=== PATIENT | female | born 2000 | race Caucasian/White ===

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

== ENCOUNTER 2020-05-08 18:28 | Emergency (ER) | payer MEDICAID, SELFPAY ==
[2020-05-08 18:30] VITALS: BP 139/81; PULSE 103; RESP 17; TEMP 36.2; O2SAT 100; BMI 26.8
[2020-05-08 18:32] VITALS: BP 139/81; PULSE 103; RESP 17; TEMP 36.2; O2SAT 100
--- NOTE | 2020-05-08 19:11 | ED.DCSUM_ITS ---
- ER Visit Summary Date of Service: 05/08/20 Chief Complaint: Cough and sore throat. History of Present Illness: The patient is a 19 F no seen past medical or surgical history. Patient states she is had 3 days of cough and sore throat. No shortness of breath. No fever. 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 She denies vomiting she had some mild diarrhea which is since resolved she denies any dysuria. Last menstrual period was 1 to 2 weeks ago. Physical Examination: Appearing young female vital signs stable afebrile. Pulse ox 100% on room air no signs hypoxia. HEENT exam unremarkable. Posterior pharynx moist and pink no erythema or exudate no signs of strep. Neck nontender no lymphadenopathy no meningismus. Lungs clear to auscultation bilaterally. Heart regular rhythm rate about 100 no murmur. Abdomen soft nontender normal bowel sounds no peritoneal signs. She is moving all 4 extremities. Neurovascular intact. No edema. She has tattoos. Back nontender. Neurologically she is awake and alert. Test Results: Rapid Covid antigen test sent off. Results pending. Emergency Department Course and Treatment: Clinically she has a viral syndrome. May or may not have Covid. Treatment Plan: Discharged home. Work excuse. Fluids and rest. Tylenol Motrin. Off work. Disposition: Discharge Impression: Viral syndrome Rule out Covid This note was generated with [employer] dictation software. It may contain incorrect words, spelling, and punctuation that were not noted in review of the chart prior to signing ED Disposition - Plan for ED Patient: Referrals: Care Physician,No Primary [Primary Care Provider] -
--- NOTE | 2020-05-08 19:13 | ED.DEP ---
ED Disposition - Plan for ED Patient: Disposition: Home or Assisted Living Instructions: ED Viral Syndrome Referrals: Tr Augustin MD [STAFF PHYSICIAN] - 1 Week if not improving Additional Instructions: Off work next several days. Fluids and rest. Tylenol and Motrin for any fever and body aches. Quarantine at home. You have a viral syndrome and may or may not be Covid or waiting for the test results. Follow-up with your doctor if getting worse or not improving or return if you feel a lot worse.
== END 2020-05-08 19:39 | disposition home or self-care (01) ==
PROVIDERS: Emergency Provider Emergency Medicine
DX: B34.9 Viral infection, unspecified (principal)
CPT/HCPCS: 87426; 99282

== ENCOUNTER → 2020-06-24 16:15 | Outpatient (CLI) | payer MEDICAID, SELFPAY ==
[2020-06-28 03:06] LABS: Chlamydia By Nucleic Acid AMP Negative (Negative)
[2020-06-28 16:24] LABS: Gonococcus By Nucleic Acid AMP Negative (Negative)
== END ==
PROVIDERS: Visit Provider Student in an Organized Health Care Education/Training Program
DX: Z11.3 Encounter for screening for infections with a predominantly sexual mode of transmission (principal)
CPT/HCPCS: 87491; 87591

== ENCOUNTER → 2020-06-30 13:50 | Outpatient (CLI) | payer MEDICAID, SELFPAY ==
[2020-06-30 15:27] LABS: Absolute Lymphocyte Count 1.75 X10^3/uL (0.83-4.51); Absolute Neutrophil Count 4.3 X10^3/uL (2.0-7.7); Basophil# 0.04 X10^3/uL; Basophil% 0.6 % (0-1); Eosinophil# 0.11 X10^3/uL; Eosinophils% 1.6 % (0-5); Hematocrit 36.2 % (37-47); Hemoglobin 11.4 g/dL (12.0-15.0); Lymphocyte # 1.75 X10^3/ul (4.0); Lymphocyte % 25.7 % (19-41); Mean Corp Hgb Conc 31.5 g/dL (32-36); Mean Corpuscular Hgb 28.6 pg (27.0-32.0); Mean Platelet Vol. 9.7 fl (6.2-12.0); Monocyte# 0.61 X10^3/uL; NRBC Flagged by Analyzer 0 % (0-5); Neutrophil # 4.26 X10^3/uL (2.7-7.7); Neutrophil % 62.7 % (47-70); Platelet Count 260 K/mm3 (150-450); RBC Distribution Width SD 42.6 fl (35.1-43.9); Red Blood Count 3.98 M/mm3 (4.2-5.4); White Blood Count 6.8 K/mm3 (4.4-11.0)
[2020-06-30 15:54] LABS: Amphetamine Urine VISTA NEGATIVE (<1000 ng/mL); Barbiturate Urine VISTA NEGATIVE (< 200 ng/mL); Benzodiazepine Urine VISTA NEGATIVE (< 200 ng/mL); Cocaine Urine VISTA NEGATIVE (< 300 ng/mL); Ecstacy Urine VISTA NEGATIVE (< 500 ng/mL); Methadone Urine VISTA NEGATIVE (< 300 ng/mL); PCP Urine VISTA NEGATIVE (< 25 ng/mL); THC Urine VISTA NEGATIVE (< 50 ng/mL); Vista UDS pH Range 6
[2020-07-01 09:21] LABS: HIV - WCH Non-Reactive (Nonreactive); Hepatitis B Surface Antigen Non-Reactive (Nonreactive); Hepatitis C Antibody Non-Reactive (Nonreactive); Rubella IgG Reactive (Nonreactive)
[2020-07-07 03:02] LABS: Prenatal RPR NONREACTIVE (NONREACTIVE)
== END ==
PROVIDERS: Visit Provider Student in an Organized Health Care Education/Training Program
DX: Z34.81 Encounter for supervision of other normal pregnancy, first trimester (principal)
CPT/HCPCS: 36415; 80307; 85025; 86703; 86762; 86803; 87086; 87088; 87340

== ENCOUNTER 2020-09-07 19:04 | Emergency (ER) | payer MEDICAID, SELFPAY ==
[2020-09-07 19:05] VITALS: BP 118/70; PULSE 109; RESP 16; TEMP 36.5; O2SAT 98; BMI 33.7
--- NOTE | 2020-09-07 20:02 | ED.VIS.GEN ---
History of Present Illness Chief Complaint: Nausea/Vomiting Informant: Patient Onset: Hours Context: Sudden Onset Timing: Intermittent Quality: Nausea and vomiting Location: Second trimester Current Severity: Moderate Maximum Severity: Severe Worsened by: Attempt to eat or drink anything Relieved by: Nothing Associated Symptoms: No other symptoms Narrative: Patient is a female who is 21 weeks gestation and presents with nausea vomiting started early this morning. She is anytime she attempt to eat or drink something she vomits. As I entered the room she was actively vomiting. There is no blood or coffee grounds noted. She has no other complaints other than mild upper abdominal discomfort with vomiting. Prior similar symptoms: No Recent Illness/Hospitalization: No - Past Medical History (1) Asthma Status: Chronic Past Medical History - Allergies and Home Meds Allergies/Adverse Reactions: Allergies amoxicillin trihydrate [From Augmentin] Allergy (Verified 09/07/20 19:06) Rash potassium clavulanate [From Augmentin] Allergy (Verified 09/07/20 19:06) Rash Primary Care Physician: Care Physician,No Primary [Primary Care Provider] - Prior records reviewed: Yes Surgical History: noncontributory Lives: With Family Smoking Status: Unknown if ever smoked Alcohol: None Drugs: None Review of Systems General: Denies: Chills, Fever, Malaise, Subjective Eyes: Denies: Visual changes - bilaterally, Blurred Vision - bilaterally ENT: Denies: Bilateral ear pain, Rhinorrhea, Sore throat Cardiovascular: Denies: Chest pain, Palpitations Respiratory: Denies: Dyspnea, Cough, Dyspnea on exertion Gastrointestinal: Reports: Abdominal pain, Nausea, Vomiting. Denies: Diarrhea, Melena, Hematochezia Genitourinary: Denies: Dysuria, Hematuria, Frequency Musculoskeletal: Denies: Myalgias, Arthralgias, Neck pain, Back pain, Swelling, Extremity Pain, -, - Skin: Denies: Rash, Wounds Neurological: Denies: Headache, Weakness, Numbness Hematologic: Denies: Easy bruising, Easy bleeding Physical Exam Vital Signs/Narrative: Vital Signs Temp Pulse Resp BP Pulse Ox 09/07/20 19:05 97.7 F L 109 H 16 118/70 98 Inital Vital Signs reviewed: Yes General: Well nourished, Well developed, Acute Distress Head: Normocephalic, Atraumatic Eyes: Perrl, EOMI ENT: Moist mucous membranes, No rhinorrhea Neck: Supple, Nontender Cardiovascular: Regular rhythm, No murmurs, Normal S1, Normal S2, Tachycardia Respiratory: No distress, CTA bilaterally, Chest nontender Abdomen: Soft, Nontender, Nondistended, Normal bowel sounds Back: Nontender, Normal Inspection Extremities: Nontender, No edema Skin: Normal color, No rash Neurological: Alert, Oriented x3, Cranial nerves II-XII grossly intact, Normal Strength, Normal Sensation Psychological: Normal affect, Normal Mood Diagnostic/Tx/Re-eval Laboratory Results 09/07/20 20:25 Urine Color Yellow Urine Clarity Clear Urine pH 6.0 Ur Specific [place] 1.025 Urine Protein 15 H Urine Glucose (UA) Normal Urine Ketones 150 H Urine Occult Blood Negative Urine Nitrite Negative Urine Bilirubin 1 H Urine Urobilinogen 1 H Ur Leukocyte Esterase 25 H Urine RBC 0 SEEN Urine WBC 0-5 SEEN Ur Squamous Epith Cells 0-5 SEEN Urine Bacteria RARE Urine Mucus 1+ Urine is remarkable for ketones. There is no evidence of infection. Patient was reassessed at 07/18/2004. She states she feels much better. She was given a p.o. challenge. - Medical Decision Making Was established. She will receive 1 L of normal saline. She was treated with Zofran for the nausea and vomiting. UA was obtained to assess for pyuria and ketones. I received a call from the lab that urine was positive for ketones, 150. Patient did pass p.o. challenge. Plan is discharged home with prescription for Zofran ED Disposition - Plan for ED Patient: Disposition: Home or Assisted Living Diagnosis: Hyperemesis gravidarum before end of 22 week gestation with dehydration Instructions: ED Hyperemesis Gravidarum Prescriptions: Ondansetron [Zofran Odt] 4 mg PO Q8H PRN PRN #10 tablet PRN Reason: Nausea Prescription Printed Referrals: Filippo Rincon MD [STAFF PHYSICIAN] - Care Physician,No Primary [Primary Care Provider] - 1-2 Days if not improving
[2020-09-07] MEDS: Ondansetron 4 MG/2 ML Vial IV (20:24)
[2020-09-07] MEDS: 0.9% Normal Saline 1,000 ML 1000 ML IV (20:24)
[2020-09-07 20:30] LABS: Red Blood Cells-Urine 0 SEEN /hpf (0-5)
[2020-09-07 20:50] LABS: Color, Urine Yellow (Yellow); Glucose, Dipstick Normal (Normal); Leukocyte Esterase-Dipstick 25 /ul (Negative); Nitrite-Dipstick Negative (Negative); Occult Blood-Urine Negative /ul (Negative); Protein-Dipstick 15 mg/dl (Negative); Specific Gravity, Urine 1.025 (1.002-1.030); Urine Clarity Clear (Clear); Urine Urobilinogen 1 mg/dl (Normal)
[2020-09-07 20:52] LABS: Urine Bilirubin Dipstick 1 mg/dL (Negative)
[2020-09-07 20:53] LABS: Ketone-Dipstick 150 mg/dl (Negative)
[2020-09-07 20:59] LABS: Bacteria RARE /hpf (None Seen); Mucous, Urine 1+ /hpf (<or=2+); Squamous Epithelial Cells - UA 0-5 SEEN /hpf (5-10); White Blood Cells 0-5 SEEN /hpf (0-5)
== END 2020-09-07 21:59 | disposition home or self-care (01) ==
PROVIDERS: Emergency Provider Emergency Medicine
DX: O21.2 Late vomiting of pregnancy (principal); O99.282 Endocrine, nutritional and metabolic diseases complicating pregnancy, second trimester; E86.0 Dehydration; Z3A.21 21 weeks gestation of pregnancy
CPT/HCPCS: 81001; 96361; 96374; 99283; J7030; A4216; J2405

== ENCOUNTER 2020-11-04 19:10 | Outpatient (CLI) | payer MEDICAID, SELFPAY ==
[2020-11-04 19:22] VITALS: BMI 37.8
[2020-11-04 19:26] VITALS: BP 108/56; PULSE 86; TEMP 36.3; O2SAT 98
[2020-11-04 20:31] LABS: Bacteria 0 SEEN /hpf (None Seen); Mucous, Urine 0 SEEN /hpf (<or=2+); Red Blood Cells-Urine 0 SEEN /hpf (0-5)
[2020-11-04 20:40] LABS: Color, Urine Yellow (Yellow); Glucose, Dipstick Normal (Normal); Ketone-Dipstick 5 mg/dl (Negative); Leukocyte Esterase-Dipstick 100 /ul (Negative); Nitrite-Dipstick Negative (Negative); Occult Blood-Urine Negative /ul (Negative); Protein-Dipstick Negative (Negative); Urine Bilirubin Dipstick Negative (Negative); Urine Clarity Sl. Cloudy (Clear); Urine Urobilinogen 1 mg/dl (Normal)
[2020-11-04 20:48] LABS: White Blood Cells 5-10 SEEN /hpf (0-5)
[2020-11-04 20:49] LABS: Squamous Epithelial Cells - UA 0-5 SEEN /hpf (5-10)
--- NOTE | 2020-11-04 23:55 | OB.TRI.NOTE ---
HPI - General HPI Narrative DELFINA PEREZ, is a 19 F who presents wtih c/o burning on urination. PFSH Home Medications PNV [id number] 1 each PO DAILY 09/07/20 [History Last Taken 11/04/20 08:00] Allergy/AdvReac Type Severity Reaction Status Date / Time amoxicillin trihydrate Allergy Rash Verified 11/04/20 19:23 [From Augmentin] potassium clavulanate Allergy Rash Verified 11/04/20 19:23 [From Augmentin] Social History (System 02/23/19 @ 14:16 by Radha Bashir) Smoking Status: Former smoker History Elective abortions Hx Para 0 Spontaneous abortions Hx # Term Pregnancies Ectopic pregnancies Hx # Pregnancies Multiple births # of living children NST FHR Rate Baby A Baseline: 135 Variability:: Moderate Accelerations:: 15 x 15 Decelerations:: None NST Reactive:: Appropriate for gestational age FHR Category:: Category I Uterine Activity:: 0/10 Assessment & Plan (1) 27 weeks gestation of : PLAN: NST reassuring Ucx pending d/c home
== END 2020-11-04 21:00 | disposition home or self-care (01) ==
LOC: WPOUT 19:15 → WP 19:15
PROVIDERS: Visit Provider Obstetrics & Gynecology
DX: O26.92 Pregnancy related conditions, unspecified, second trimester (principal); R30.9 Painful micturition, unspecified; Z3A.27 27 weeks gestation of pregnancy
CPT/HCPCS: 59025; 59050; 81001; 87086; 87088; 99218; G0378

== ENCOUNTER → 2020-11-09 14:32 | Outpatient (CLI) | payer MEDICAID, SELFPAY ==
[2020-11-04 19:22] VITALS: BMI 37.8
[2020-11-09 16:11] LABS: Hemoglobin 10.7 g/dL (12.0-15.0); Mean Corp Hgb Conc 32.4 g/dL (32-36); Mean Corpuscular Volume 86.4 fL (81-99); Mean Platelet Vol. 10.2 fl (6.2-12.0); Platelet Count 219 K/mm3 (150-450); RBC Distribution Width CV 12.2 % (11.6-14.6); RBC Distribution Width SD 38.4 fl (35.1-43.9); Red Blood Count 3.82 M/mm3 (4.2-5.4); White Blood Count 7.8 K/mm3 (4.4-11.0)
[2020-11-09 16:16] LABS: Glucose Challenge Gest 1H 50g 111 mg/dL (70-140)
[2020-11-09 16:37] LABS: Amphetamine Urine VISTA NEGATIVE (<1000 ng/mL); Barbiturate Urine VISTA NEGATIVE (< 200 ng/mL); Benzodiazepine Urine VISTA NEGATIVE (< 200 ng/mL); Cocaine Urine VISTA NEGATIVE (< 300 ng/mL); Ecstacy Urine VISTA NEGATIVE (< 500 ng/mL); Methadone Urine VISTA NEGATIVE (< 300 ng/mL); PCP Urine VISTA NEGATIVE (< 25 ng/mL); THC Urine VISTA NEGATIVE (< 50 ng/mL); Vista UDS pH Range 5
== END ==
PROVIDERS: Visit Provider Obstetrics & Gynecology
DX: Z34.83 Encounter for supervision of other normal pregnancy, third trimester (principal)
CPT/HCPCS: 36415; 80307; 82950; 85027

== ENCOUNTER → 2021-01-05 13:23 | Outpatient (CLI) | payer MEDICAID, SELFPAY | PROVIDERS: Visit Provider Obstetrics & Gynecology | DX: Z36.85 Encounter for antenatal screening for Streptococcus B (principal) | CPT/HCPCS: 87081 ==

== ENCOUNTER 2021-01-26 23:30 | Inpatient (IN) | payer OTHER, MEDICAID, SELFPAY ==
[2021-01-26] VITALS (7 sets, daily range): BP systolic 131–147; BP diastolic 78–89; PULSE 86–113; TEMP 36.8; O2SAT 99; BMI 44.2
[2021-01-27] VITALS (62 sets, daily range): BP systolic 97–149; BP diastolic 52–106; PULSE 81–188; RESP 14–18; TEMP 35.9–37.4; O2SAT 84–100
[2021-01-27] MEDS: Lactated Ringers 1,000 ML 50 ML IV (00:01)
[2021-01-27] MEDS: Oxytocin 30 units/NS 500 ml 30 UNITS/500 ML IV.SOLN IV (00:13)
[2021-01-27] MEDS: 0.9% Saline Lock 10 ML Syringe IV (00:13)
[2021-01-27 00:55] LABS: Mucous, Urine 0 SEEN /hpf (<or=2+); Red Blood Cells-Urine 0 SEEN /hpf (0-5)
[2021-01-27 00:58] LABS: Absolute Lymphocyte Count 2.89 X10^3/uL (0.83-4.51); Absolute Neutrophil Count 5.6 X10^3/uL (2.0-7.7); Basophil# 0.04 X10^3/uL; Basophil% 0.4 % (0-1); Hematocrit 35.8 % (37-47); Hemoglobin 11.2 g/dL (12.0-15.0); Lymphocyte # 2.89 X10^3/ul (0.83-4.51); Lymphocyte % 29.4 % (19-41); Mean Corp Hgb Conc 31.3 g/dL (32-36); Mean Corpuscular Hgb 25.9 pg (27.0-32.0); Mean Corpuscular Volume 82.9 fL (81-99); Mean Platelet Vol. 10.6 fl (6.2-12.0); Monocyte# 1.14 X10^3/uL; Monocyte% 11.6 % (0-10); NRBC Flagged by Analyzer 0 % (0-5); Neutrophil # 5.55 X10^3/uL (2.7-7.7); Neutrophil % 56.5 % (47-70); POSITIVE COUNT YES; Platelet Count 233 K/mm3 (150-450); RBC Distribution Width CV 15.5 % (11.6-14.6); RBC Distribution Width SD 46.6 fl (35.1-43.9); Red Blood Count 4.32 M/mm3 (4.2-5.4); White Blood Count 9.8 K/mm3 (4.4-11.0)
[2021-01-27 00:59] LABS: Color, Urine Yellow (Yellow); Glucose, Dipstick Normal (Normal); Ketone-Dipstick Negative (Negative); Leukocyte Esterase-Dipstick 100 /ul (Negative); Nitrite-Dipstick Negative (Negative); Occult Blood-Urine Negative /ul (Negative); Protein-Dipstick Negative (Negative); Specific Gravity, Urine 1.015 (1.002-1.030); Urine Bilirubin Dipstick Negative (Negative); Urine Clarity Clear (Clear); Urine Urobilinogen Normal (Normal); Urine pH 6.5 (5.0 - 8.0)
[2021-01-27 01:08] LABS: Protein, Urine (Random) 11.4 mg/dL (<11.9); Protein:Creat Ratio 155 mg/g CRE (0-200)
[2021-01-27 01:12] LABS: Amphetamine Urine VISTA NEGATIVE (<1000 ng/mL); Barbiturate Urine VISTA NEGATIVE (< 200 ng/mL); Benzodiazepine Urine VISTA NEGATIVE (< 200 ng/mL); Cocaine Urine VISTA NEGATIVE (< 300 ng/mL); Ecstacy Urine VISTA NEGATIVE (< 500 ng/mL); Methadone Urine VISTA NEGATIVE (< 300 ng/mL); PCP Urine VISTA NEGATIVE (< 25 ng/mL); THC Urine VISTA NEGATIVE (< 50 ng/mL); Vista UDS pH Range 6
[2021-01-27] MEDS: Lactated Ringers 500 ML 999 ML IV (01:15)
[2021-01-27 01:21] LABS: ALB/GLOB Ratio 0.6 RATIO (0.9-2.4); AST(SGOT) 14 U/L (15-37); Alanine Aminotransfer ALT/SGPT 13 U/L (13-56); Albumin, Serum 2.5 g/dL (3.2-5.0); Alkaline Phosphatase 236 U/L (45-117); Anion Gap 9 (5-15); BUN 10 mg/dL (7-18); BUN/Creat Ratio 20.8 RATIO (10-20); Calcium,Total 8.6 mg/dL (8.5-10.1); Chloride 106 mmol/L (98-107); Creatinine, Serum 0.48 mg/dL (0.55-1.02); EST Glomerular Filtration Rate 175 mL/min (>60); Est Glom Filt Rate - Afr Amer 212 mL/min (>60); Estimated Creatinine Clearance 147.86 ml/min; Globulin 4.5 g/dL (2.2-4.2); Glucose 76 mg/dL (74-106); LDH 195 U/L (84-246); Potassium 3.8 mmol/L (3.5-5.1); Sodium Level 138 mmol/L (136-145)
[2021-01-27 01:24] LABS: Bacteria 1+ /hpf (None Seen); Squamous Epithelial Cells - UA 0-5 SEEN /hpf (5-10); White Blood Cells 0-5 SEEN /hpf (0-5)
--- NOTE | 2021-01-27 01:39 | NURSING ---
upon asking admission questions and drug use history, pt initially denied drug use. When this RN discussed methamphetamine use listed in her chart she stated i think the last time i used meth was when i found out i was , i stopped because i was this RN asked if there were other drugs used during and pt stated i used marijuana, but i stopped when i was about 5 months i think This RN discussed physician order for urine tox screen and possibility of testing infants first urine and stool. pt verbalized understanding. pt requested use of drugs not be discussed in front of her mother as she is unaware of her drug use history. plan for case management to see prior to discharge.
[2021-01-27] MEDS: fentaNYL-bupivacaine (epidural) 100 ML BAG EPIDURAL ×3 (02:15→10:55)
[2021-01-27] MEDS: Lactated Ringers 1,000 ML 200 ML IV ×2 (04:48→10:01)
--- NOTE | 2021-01-27 07:43 | PCM.HP.BLA ---
History and Physical Date of Admission: 01/27/21 Chief complaint: Decreased movement, increased blood pressure History of present illness: 20-year-old G2, P1 at 39 weeks and 5 days with DEISY: 01/29/2021 by 9-week ultrasound arrives with decreased movement. Denies headache, visual changes, chest pain, shortness of breath, nausea, right upper quadrant pain. This is complicated by history of meth use Obstetric history: G1: 41-week vacuum-assisted vaginal delivery female 08/19/2018 G2: Current Past medical history: Depression Medications: vitamin Past surgical history ET tubes Allergies: Augmentin Social history: Former smoker, history of meth use, no alcohol use Family history: Denies history of DVT PE Review of systems: Besides above pertinent positives a full review of systems was performed and found to be negative Physical exam: Blood pressure 97/56 pulse 95 temp 96.6 Fahrenheit SPO2 100% on room air General: Normal-appearing no acute distress HEENT: Normocephalic atraumatic no cervical of adenopathy Cardiac/respiratory: No use of accessory muscles, nonlabored breathing Abdomen: Soft, nontender, gravid Pelvic exam: 60/-3 AROM clear fluid Extremities: No peripheral edema normal peripheral pulses Psych: Normal affect normal demeanor nonpressured speech Labs: White blood cell count 9.8, hemoglobin 9.2, hematocrit 35.8%, platelets 233. Sodium 138 potassium 3.8 creatinine 0.48 total bilirubin 0.2. AST 14 ALT 13 LDH 195. Urine negative for protein. A+ antibody negative Assessment plan: 20-year-old G2, P1 at 39 weeks and 5 days with decreased movement and elevated pressures does not quite meet criteria for gestational hypertension but will induce at term Admit labor and delivery CEFM GBS negative Pitocin induction, AROM Elevated blood pressures: We will continue to monitor blood pressures, HELLP labs within normal limits. History of meth use: Tox screen negative Routine orders Anesthesia to see
[2021-01-27] MEDS: Oxytocin 30 units/NS 500 ml 30 UNITS/500 ML IV.SOLN 334 UNITS IV (12:15)
[2021-01-27] MEDS: Levonorgestrel IUD (Liletta) 1 EACH INTRA-UTER (12:20)
--- NOTE | 2021-01-27 12:35 | EX.PCM.OBRPT ---
Vaginal Delivery Findings Description of Procedure: Normal spontaneous vaginal delivery of a viable male , vertex TAMMIE. Head and shoulders delivered with ease. Cord cut and clamped. Baby handed off to patient. Placenta delivered via cord traction and fundal massage. Immediate Liletta IUD placed. Second-degree midline perineal laceration noted and repaired in typical fashion. EBL 300 cc Apgars 8/9
[2021-01-27] MEDS: Ibuprofen 600 MG Tablet PO (20:23)
[2021-01-28] VITALS (9 sets, daily range): BP systolic 100–140; BP diastolic 58–82; PULSE 73–93; RESP 16–18; TEMP 36.1–37; O2SAT 100
[2021-01-28] MEDS: Ibuprofen 600 MG Tablet PO (04:18)
[2021-01-28] MEDS: Acetaminophen 500 MG Tablet 1000 MG PO (07:40)
--- NOTE | 2021-01-28 11:30 | PCM.PN.OB ---
Subjective Subjective No issues overnight. Doing well. Has mild cramping with nursing. Denies heavy lochia or other painfulness. Had a mild headache early this morning on awakening that resolved spontaneously. Denies headache, vision changes, shortness of breath or chest pain at this time. Request DC home today. Objective Data Objective Data Vital Signs: Vital Signs Temp Pulse Resp BP Pulse Ox 98.6 F 75 16 140/82 H 100 01/28/21 07:24 01/28/21 07:26 01/28/21 07:24 01/28/21 07:26 01/28/21 07:24 Oxygen Delivery Method Room Air Weight: 109.8 kg Body Mass Index (BMI) 44.2 Intake & Output: Intake and Output for Last 24 Hours 01/26/21 01/27/21 01/28/21 23:59 23:59 23:59 Intake Total 3470.81 / 3470.81 Output Total 1600 / 1600 Balance 1870.81 / 1870.81 Lab / Micro Data Result Diagrams: 01/26/21 23:50 01/26/21 23:50 Micro: Microbiology 01/26/21 23:55 Mucosa - Nose SARS-CoV-2 Antigen (Rapid) - Final Physical Exam Const alert, oriented x3 and no apparent distress General Appearance: cooperative and comfortable HEENT normocephalic Resp normal respiratory effort and normal air movement Auscultation: clear to auscultation bilaterally Cardio regular rate, regular rhythm, S1 normal heart sound and S2 normal heart sound GI soft to palpation, non-tender and non-distended OB / External & Speculum: other Uterus Palpation: other OB Fundus firm and nontender Extremity no calf tenderness and no pedal edema Assessment & Plan (1) (spontaneous vaginal delivery): COMMENT: day #1 status post uncomplicated PLAN: Breast-feeding Possible gestational hypertension. Preeclampsia labs were negative. Patient asymptomatic at this time with no signs or symptoms of worsening blood pressure. Routine care Rh+ We will continue to observe blood pressures this afternoon and if appropriate will discharge patient to home.
--- NOTE | 2021-01-28 11:34 | PCM.DC ---
Discharge Instructions Diet Discharge Diet: No restrictions Activity May resume sexual activity in: 4-6 weeks Dressing / Incision Call your doctor if you observe: Fever of 101 or Higher, Using more than 1 pad per hour, Shortness of breath, Chest pain, Calf discomfort, Uncontrolled pain and - (Persistent or severe headache) Follow Up Care Please Follow Up With: Vasiliy Bashir MD Test Results: Test results from this visit will be discussed in further detail at your follow-up appointment, if applicable. Discharge Plan Admission Admit Date/Time: 01/26/21 23:30 Primary Reason for Your Visit: Vaginal delivery Attending Provider: Vasiliy Bashir Primary Care Provider: Care Physician,No Primary Instructions Patient Instructions: After a Vaginal Discharge Orders/Prescriptions Prescriptions: New ibuprofen 600 mg Tablet 600 mg PO Q8H PRN PRN (Reason: Pain Score 1-3) Qty: 30 RF: 0 Continued PNV [id number] oil 1 EACH tablet,chewable 1 each PO DAILY RF: 0 Referrals / Follow Up: Care Physician,No Primary [Primary Care Provider] - Disposition Disposition (needs filled in before D/C Order can be placed): Home, Self Care
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
== END 2021-01-28 14:40 | disposition home or self-care (01) | DRG 807 ==
LOC: WPOUT 23:35 → WP 23:35
PROVIDERS: Admitting Provider Obstetrics & Gynecology; Visit Provider Obstetrics & Gynecology
DX: O75.89 Other specified complications of labor and delivery (principal); Z37.0 Single live birth; O36.8130 Decreased fetal movements, third trimester, not applicable or unspecified; Z3A.39 39 weeks gestation of pregnancy; R03.0 Elevated blood-pressure reading, without diagnosis of hypertension; O70.1 Second degree perineal laceration during delivery; Z30.430 Encounter for insertion of intrauterine contraceptive device; O99.324 Drug use complicating childbirth; F15.11 Other stimulant abuse, in remission
CPT/HCPCS: 59025; 59050; 80053; 80307; 81001; 82570; 83615; 84156; 85025; 86850; 86900; 86901; 87426; 99218; J7120; A4216; G0378

== ENCOUNTER 2021-02-25 06:00 | Emergency (ER) | payer MEDICAID, SELFPAY ==
[2021-02-25 06:02] VITALS: BP 147/100; PULSE 117; RESP 28; TEMP 36.6; O2SAT 100; BMI 37.6
--- NOTE | 2021-02-25 06:35 | ED.VIS.DYS ---
HPI History of Present Illness Chief Complaint: Shortness of Breath Narrative Narrative: 20-year-old female presenting with chills, body ache, cough. Patient states this has been going on for about 3 days. Patient is not had any nausea, vomiting, diarrhea. She states she is currently living at a fdc. She believes that there is a lot of people there that are sick. She states that nobody says they are sick. She states there is a lot of people coughing. She has not had a fever. And she is not had a change in taste or smell. She denies medical problems. COUNT INCLUDES THE [facility] PFS Medical History Asthma Depression Gestational HTN Hx of fracture of radius Home Medications ibuprofen 600 mg PO Q8H PRN PRN #30 tab 01/28/21 [Rx Last Taken Unknown] Allergy/AdvReac Type Severity Reaction Status Date / Time amoxicillin trihydrate Allergy Rash Verified 02/25/21 06:01 [From Augmentin] potassium clavulanate Allergy Rash Verified 02/25/21 06:01 [From Augmentin] Social History Smoking Status: Former smoker ROS ROS ED Constitutional Constitutional ED: Reports chills; Denies fever(s) or weight loss Eyes Eyes: Denies blurry vision or diplopia ENT ENT ED: Reports rhinorrhea; Denies ear pain Cardiovascular Cardiovascular: Denies chest pain or palpitations Respiratory/Chest Respiratory/Chest: Reports cough and dyspnea; Denies sputum Gastrointestinal Gastrointestinal: Denies abdominal pain, nausea or vomiting Genitourinary Genitourinary ED: Denies dysuria or hematuria Musculoskeletal Musculoskeletal: Reports myalgias; Denies arthralgias, back pain or neck pain Integumentary Denies Abrasions or rash Neurologic Neurologic: Reports headache(s); Denies paresthesias or weakness EXAM Physical Exam Const Vital Signs: 02/25/21 06:02 02/25/21 07:08 Temperature 97.9 F Temperature Source Temporal Pulse Rate 117 H 85 Respiratory Rate 28 H 16 Blood Pressure 147/100 H 136/78 H Blood Pressure Mean 115 Pulse Ox 100 100 Oxygen Delivery Method Room Air Positive well nourished General Appearance ED: NAD HEENT Reports moist mucous membranes atraumatic Eyes PERRL and EOMs intact bilaterally Neck no lymphadenopathy and supple Resp clear to auscultation bilaterally Auscultation: Negative for rhonchi or wheezes Cardio regular rate and regular rhythm Neuro oriented x3 and CN's II-XII intact bilaterally Sensorium / Orientation: alert Psych mental status grossly normal Thought Process: normal thought process Skin Rashes: no rashes MDM MDM MDM Narrative Medical decision making narrative: 20-year-old female with no significant medical history presenting with chills, cough, body aches. Patient states she lives at a fdc and there are a lot of other sick people there. Her initial vital signs after walking into the emergency room showed a heart rate of 117 and respirate of 28. Her pulse ox is 100%. She is afebrile. On my evaluation in the room patient's heart rate is 89. Respiratory rate is 20. Her oxygen saturation is still 100%. Her lungs are clear to auscultation. I will test her for COVID-19. Patient will be discharged home with return precautions. She will follow-up for her COVID-19 test results. Impression: 1 viral syndrome Discharge Plan Triage Chief Complaint: Shortness of Breath ED Provider: Alex Bennett Dx/Rx/DC Orders Instructions: Coronavirus Disease 2019 (COVID-19): Caring for Yourself or Others Prescriptions: No Action ibuprofen 600 mg Tablet 600 mg PO Q8H PRN PRN (Reason: Pain Score 1-3) Qty: 30 RF: 0 Primary Care Provider: Care Physician,No Primary Referrals: Fast,Ayaka, DO [NON-STAFF] - As soon as possible Care Physician,No Primary [Primary Care Provider] - Disposition Disposition: Home, Self Care Discharge Date/Time: 02/25/21 07:08
[2021-02-25 07:08] VITALS: BP 136/78; PULSE 85; RESP 16; O2SAT 100
== END 2021-02-25 07:08 | disposition home or self-care (01) ==
PROVIDERS: Emergency Provider Student in an Organized Health Care Education/Training Program
DX: B34.9 Viral infection, unspecified (principal); Z87.891 Personal history of nicotine dependence
CPT/HCPCS: 87426; 99283

== ENCOUNTER 2022-06-03 19:14 | Emergency (ER) | payer MEDICAID, SELFPAY ==
[2022-06-03 19:15] VITALS: BP 117/55; PULSE 115; RESP 18; TEMP 36.9; BMI 29.2
--- NOTE | 2022-06-03 19:45 | EX.ED.VIS.UR ---
HPI HPI - URI History of Present Illness Chief Complaint: Cough Informant: patient Narrative Narrative: 21-year-old female presenting with cough, body aches, subjective fever. She states this started 2 days ago. Her son is also sick with similar complaints. She has nausea with no vomiting. Denies diarrhea or abdominal pain. She did not receive a flu or COVID-vaccine. Prior similar symptoms: Yes Recent Illness/Hospitalization: No ROS ROS ED Constitutional Constitutional ED: Reports chills, fever(s) and subjective Eyes Eyes: Denies change in vision ENT ENT ED: Reports rhinorrhea and sore throat Cardiovascular Cardiovascular: Denies chest pain or palpitations Respiratory/Chest Respiratory/Chest: Reports cough; Denies dyspnea Gastrointestinal Gastrointestinal: Reports nausea; Denies abdominal pain, diarrhea or vomiting Genitourinary Genitourinary ED: Denies dysuria Musculoskeletal Musculoskeletal: Reports myalgias Integumentary Denies rash Neurologic Neurologic: Denies headache(s) Psychiatric Psychiatric: Denies suicidal thoughts PFSH PFSH Medical History Asthma Depression Gestational HTN Hx of fracture of radius Home Medications ibuprofen 600 mg tablet 600 mg PO Q8H PRN PRN Pain Score 1-3 #30 tabs 01/28/21 [Rx Last Taken Unknown] Allergy/AdvReac Type Severity Reaction Status Date / Time amoxicillin trihydrate Allergy Rash Verified 02/25/21 06:01 [From Augmentin] potassium clavulanate Allergy Rash Verified 02/25/21 06:01 [From Augmentin] Social History Smoking Status: Former smoker EXAM Physical Exam Const Vital Signs: 06/03/22 19:15 06/03/22 19:15 06/03/22 19:27 Temperature 98.5 F 98.5 F Temperature Source Temporal Temporal Pulse Rate 115 H 115 H Respiratory Rate 18 18 Respiratory Effort Normal Respiratory Depth Normal Respiratory Pattern Normal Blood Pressure 117/55 L 117/55 L Blood Pressure Mean 75 75 Positive well nourished and well developed General Appearance ED: well developed HEENT Reports normocephalic and head/scalp atraumatic Eyes PERRL and EOMs intact bilaterally Neck supple Neck Narrative: No meningismus. General: Negative for tenderness Chest Wall inspection of chest normal Resp normal respiratory effort and clear to auscultation bilaterally Cardio regular rhythm Rate: tachycardic GI non-tender and non-distended Palpation: soft; Negative for guarding or rebound tenderness present no CVA tenderness Extremity normal to inspection Neuro oriented x3 Sensorium / Orientation: alert Psych mental status grossly normal Skin Rashes: no rashes MDM MDM MDM Narrative Medical decision making narrative: Patient tolerated fluid challenge. Repeat heart rate 99. COVID and influenza negative. Her 1-year-old child did test positive for influenza so this may be a false negative. She is feeling improved. Advised signs and symptoms for which to return to the ED. Lab Data Attestation: I reviewed the patient's lab results. Discharge Plan Triage Chief Complaint: Cough ED Provider: Jackie Spears Dx/Rx/DC Orders Clinical Impression: Viral illness Prescriptions: No Action ibuprofen 600 mg Tablet 600 mg PO Q8H PRN PRN (Reason: Pain Score 1-3) Qty: 30 0RF Stand Alone Forms: ED Work / School Excuse Primary Care Provider: Care Physician,No Primary Referrals: Care Physician,No Primary [Primary Care Provider] - Disposition Disposition: Home, Self Care
== END 2022-06-03 22:12 | disposition home or self-care (01) ==
PROVIDERS: Emergency Provider Emergency Medicine; Visit Provider Emergency Medicine
DX: B34.9 Viral infection, unspecified (principal); Z87.891 Personal history of nicotine dependence
CPT/HCPCS: 87428; 99283

== ENCOUNTER 2022-07-28 21:38 | Emergency (ER) | payer OTHER, MEDICAID, SELFPAY ==
[2022-07-28 21:38] VITALS: BP 135/78; PULSE 98; RESP 16; TEMP 36.6; O2SAT 100; BMI 28.3
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
[2022-07-28] MEDS: Diphth,Pertuss(Acell),Tet Vac 0.5 ML Vial IM (22:25)
== END 2022-07-28 22:31 | disposition home or self-care (01) ==
PROVIDERS: Emergency Provider Emergency Medicine; Visit Provider Emergency Medicine
DX: T23.131A Burn of first degree of multiple right fingers (nail), not including thumb, initial encounter (principal); F17.290 Nicotine dependence, other tobacco product, uncomplicated; X58.XXXA Exposure to other specified factors, initial encounter
CPT/HCPCS: 90715; 96372; 99282

== ENCOUNTER 2023-03-17 20:44 | Emergency (ER) | payer MEDICAID, SELFPAY ==
[2023-03-17 20:45] VITALS: BP 120/80; PULSE 85; RESP 16; TEMP 35.6; O2SAT 100; BMI 26.6
--- NOTE | 2023-03-17 21:15 | RAD_ITS ---
STUDY: X-RAY - RIGHT SHOULDER REASON FOR EXAM: Female, 22 years old. Trauma TECHNIQUE: 2 view(s) of the shoulder. COMPARISON: None. FINDINGS: Normal glenohumeral articulation. Normal acromioclavicular joint. Normal acromion. Normal humeral head and visualized proximal humerus. The soft tissue structures are unremarkable. Normal visualized pulmonary apex. RAD/Shoulder min 2 Views IMPRESSION: Normal x-ray examination of the shoulder. Electronically Signed: Fernando Bartlett MD at 21:53 EDT ,
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
--- NOTE | 2023-03-17 21:15 | RAD_ITS ---
STUDY: X-RAY - RIGHT WRIST REASON FOR EXAM: Female, 22 years old. Trauma TECHNIQUE: 3 view(s) of the wrist were obtained. COMPARISON: None. FINDINGS: Normal visualized distal radius and ulna. Normal radiocarpal articulation. Normal distal radioulnar articulation. Normal carpal bones. Normal carpal articulations. Normal carpometacarpal articulation of the thumb. Normal second through fifth carpometacarpal articulations. Normal visualized metacarpal bones. The soft tissue structures are unremarkable. RAD/Wrist min 3 Views IMPRESSION: Normal x-ray examination of the wrist. Electronically Signed: Fernando Bartlett MD at 21:59 EDT ,
--- NOTE | 2023-03-17 22:27 | EX.ED.UPPERE ---
HPI History of Present Illness Chief Complaint: Upper Extremity Injury Informant: patient Narrative Narrative: Patient complains of right shoulder and arm pain. Patient states she was skateboarding. She had a stone causing her to fall. She fell on her right shoulder. She did hit her right cheek but no loss of consciousness. She states the cheek does not really hurt. She has no neck pain. She has no numbness tingling or weakness. She has pain in the right shoulder. She also has some pain in the forearm and wrist area. She states it feels better if she holds it next to her body. No numbness. No loss of function. No color change. PFSH PFSH Medical History Asthma Depression Gestational HTN Hx of fracture of radius Home Medications NK 07/28/22 [History Last Taken Unknown] naproxen 500 mg tablet 500 mg PO BID #14 tabs 03/17/23 [Rx Last Taken Unknown] Allergy/AdvReac Type Severity Reaction Status Date / Time amoxicillin trihydrate Allergy Rash Verified 03/17/23 20:45 [From Augmentin] potassium clavulanate Allergy Rash Verified 03/17/23 20:45 [From Augmentin] Social History Smoking Status: Current some day smoker tobacco type: e-cigarettes ROS ROS ED Constitutional Constitutional ED: Denies chills or fever(s) Eyes Eyes: Denies blurry vision, change in vision or diplopia ENT ENT ED: Reports other Details: Contusion to right cheek. But states it does not hurt. No nasal pain or bleeding. Cardiovascular Cardiovascular: Denies chest pain or palpitations Respiratory/Chest Respiratory/Chest: Denies cough, dyspnea or dyspnea on exertion Gastrointestinal Gastrointestinal: Denies abdominal pain, nausea or vomiting Genitourinary Genitourinary ED: Denies hematuria Musculoskeletal Musculoskeletal: Reports other Details: See history of present illness. ; Denies back pain or neck pain Integumentary Reports Abrasions Neurologic Neurologic: Denies headache(s), paresthesias or weakness Hematologic/Lymphatic Hematologic/Lymphatic: Denies easy bleeding or easy bruising Allergic/Immunologic Allergic/Immunologic ED: Denies urticaria EXAM Physical Exam Narrative Exam Narrative: General: Patient awake alert sitting on bed typing on phone. She looks comfortable and nontoxic. HEENT does show slight abrasion contusion to right cheek. But no step-off. Pressing inside the mouth shows no tenderness behind the zygoma. Teeth meet normally. No nasal pain or epistaxis. No anesthesia near the upper lip. Eyes: No limitation of range of motion. No diplopia with upward gaze. Neck: No tenderness. No pain with range of motion. She can look 45 degrees or more each side. She can look up and down. No cervical thoracic or lumbar tenderness. Chest is nontender. Breathing is easy and unlabored. Saturations are normal at 100% on room air showing no hypoxia. Heart is regular. No murmurs or muffled heart tones. Pulses are intact and normal including right upper extremity. Abdomen is soft nontender. Extremities: She has a little bit of redness and sign of may be subtle abrasion to the right anterior shoulder. No laceration. She has some diffuse mild tenderness around the shoulder. No tenderness at the scapula or clavicle. No tenderness in the humerus or elbow. But starting in the proximal forearm all the way out through the wrist on the right she has tenderness. But there is no deformity. No swelling. She can move it although it is sore. There is no tenderness of her fingers or hands. Sensation is intact. Capillary refill is intact. No snuffbox tenderness Const Vital Signs: 03/17/23 20:45 03/17/23 20:45 Temperature 96.0 F L 96.0 F L Temperature Source Temporal Temporal Pulse Rate 85 85 Respiratory Rate 16 16 Blood Pressure 120/80 120/80 Blood Pressure Mean 93 93 Pulse Ox 100 100 Oxygen Delivery Method Room Air Room Air MDM MDM MDM Narrative Medical decision making narrative: My independent interpretation of her two-view right forearm shows no acute fracture. Bracelet is noted. Final reading is negative. My independent interpretation of the patient's two-view right shoulder shows no acute fracture and this is consistent with final reading. My independent interpretation of her three-view x-ray of the right wrist shows no acute fracture. Note of bracelet is again made. Final reading is also negative. I rechecked the patient. She is sitting comfortably. She has no other complaints or new complaints. No other concerns. I explained that we can get her a sling that will help. But she needs to have frequent range of motion 5 or 6 times a day and then only use the sling for 3 days. But she needs to move it out of the sling to prevent stiffness. We will also write for some nonsteroidals. Ice is recommended. If she develops new or different or worsening pain she should return. Radiography Diagnostic Testing: Clinical Impression(s) from Imaging Studies Forearm X-Ray 03/17/23 21:15 IMPRESSION: Normal x-ray examination of the radius and ulna. Electronically Signed: Fernando Bartlett MD at 21:53 EDT Reading Location ID and State: [id number] / [employer] , Service support , Shoulder X-Ray 03/17/23 21:15 IMPRESSION: Normal x-ray examination of the shoulder. Electronically Signed: Fernando Bartlett MD at 21:53 EDT Reading Location ID and State: [id number] / [employer] , Service support , Wrist X-Ray 03/17/23 21:15 IMPRESSION: Normal x-ray examination of the wrist. Electronically Signed: Fernando Bartlett MD at 21:59 EDT Reading Location ID and State: [id number] / [employer] , Service support , Discharge Plan Triage Chief Complaint: Upper Extremity Injury ED Provider: Leon Rodriguez Dx/Rx/DC Orders Clinical Impression: Fall from skateboard, initial encounter, Contusion of forearm, right, Contusion of right shoulder region, Contusion of right wrist Instructions: ED Contusion, Upper Extremity Prescriptions: New naproxen 500 mg tablet 500 mg PO BID Qty: 14 0RF No Action NK Primary Care Provider: Care Physician,No Primary Referrals: Tony Suarez DO [Med Staff - Fire Management Officer] - 3-5 Days if not improving Care Physician,No Primary [Primary Care Provider] - Activity Restrictions/Additional Instructions: Frequent range of motion out of sling as discussed. Only use sling for 3 days. Disposition Disposition: Home, Self Care
== END 2023-03-17 22:44 | disposition home or self-care (01) ==
PROVIDERS: Emergency Provider Emergency Medicine; Visit Provider Emergency Medicine
DX: S50.11XA Contusion of right forearm, initial encounter (principal); S40.011A Contusion of right shoulder, initial encounter; S60.211A Contusion of right wrist, initial encounter; F17.290 Nicotine dependence, other tobacco product, uncomplicated; V00.131A Fall from skateboard, initial encounter
CPT/HCPCS: 73030; 73090; 73110; 99283

== ENCOUNTER → 2024-03-10 | Outpatient (CLI) | payer MEDICAID, SELFPAY ==
[2024-03-10 12:22] LABS: Absolute Lymphocyte Count 3.07 X10^3/uL (0.83-4.51); Absolute Neutrophil Count 2.6 X10^3/uL (2.0-7.7); Basophil# 0.04 X10^3/uL; Basophil% 0.6 % (0-1); Eosinophil# 0.14 X10^3/uL; Eosinophils% 2.2 % (0-5); Hematocrit 40.4 % (37-47); Hemoglobin 13.2 g/dL (12.0-15.0); Lymphocyte # 3.07 X10^3/ul (0.83-4.51); Lymphocyte % 48.2 % (19-41); Mean Corp Hgb Conc 32.7 g/dL (32-36); Mean Corpuscular Hgb 28.1 pg (27.0-32.0); Mean Corpuscular Volume 86.1 fL (81-99); Mean Platelet Vol. 10.1 fl (6.2-12.0); Monocyte# 0.53 X10^3/uL; Monocyte% 8.3 % (0-10); NRBC Flagged by Analyzer 0 % (0-5); Neutrophil # 2.58 X10^3/uL (2.7-7.7); Neutrophil % 40.5 % (47-70); Platelet Count 230 K/mm3 (150-450); RBC Distribution Width CV 12.1 % (11.6-14.6); RBC Distribution Width SD 38.1 fl (35.1-43.9); Red Blood Count 4.69 M/mm3 (4.2-5.4); White Blood Count 6.4 K/mm3 (4.4-11.0)
[2024-03-10 12:59] LABS: Vitamin D,25 Hydroxy 30.6 ng/mL
[2024-03-10 13:43] LABS: ALB/GLOB Ratio 1.1 RATIO (0.9-2.4); AST(SGOT) 18 U/L (15-37); Alanine Aminotransfer ALT/SGPT 16 U/L (13-56); Albumin, Serum 3.7 g/dL (3.2-5.0); Alkaline Phosphatase 98 U/L (45-117); Anion Gap 5 (5-15); BUN 13 mg/dL (7-18); BUN/Creat Ratio 21.5 RATIO (10-20); Calcium,Total 8.9 mg/dL (8.5-10.1); Chloride 105 mmol/L (98-107); EST Glomerular Filtration Rate 130 mL/min (>60); Est Glom Filt Rate - Afr Amer 158 mL/min (>60); Globulin 3.3 g/dL (2.2-4.2); Glucose 86 mg/dL (74-106); Potassium 3.8 mmol/L (3.5-5.1); Sodium Level 137 mmol/L (136-145)
== END | disposition home or self-care (01) ==
LOC: MTLAB 10:23
PROVIDERS: PCP Family Medicine; Referring Provider Family Medicine; Visit Provider Family Medicine
DX: Z00.00 Encounter for general adult medical examination without abnormal findings (principal)
CPT/HCPCS: 36415; 80053; 82306; 85025

== ENCOUNTER → 2024-05-04 | Outpatient (CLI) | payer MEDICAID, SELFPAY ==
[2024-05-11 15:07] LABS: Chlamydia By Nucleic Acid AMP Negative (Negative); Gonococcus By Nucleic Acid AMP Negative (Negative); Trich. Vag By Nucleic Acid AMP Negative (Negative)
[2024-05-21 10:15] LABS: HPV HIGH RISK 16/18 Negative; HPV Reflexed? YES, CHARGE PATIENT
== END | disposition home or self-care (01) ==
PROVIDERS: Registered Nurse; PCP Family Medicine
DX: Z01.419 Encounter for gynecological examination (general) (routine) without abnormal findings (principal)
CPT/HCPCS: 87491; 87591; 87624; 88175; G0145